=== PATIENT | female | born 1960 | race Caucasian/White ===

== ENCOUNTER 2017-03-16 16:27 | Emergency (ER) | payer MEDICARE ==
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
[2017-03-16 16:53] VITALS: BP 151/84; PULSE 98; BMI 42.9
[2017-03-16 17:17] VITALS: TEMP 98
== END 2017-03-16 18:12 | disposition home or self-care (01) ==
LOC: JER 16:27
DX: J70.5 Respiratory conditions due to smoke inhalation (principal); F17.290 Nicotine dependence, other tobacco product, uncomplicated; X02.1XXA Exposure to smoke in controlled fire in building or structure, initial encounter; Y93.89 Activity, other specified; Y92.038 Other place in apartment as the place of occurrence of the external cause
CPT/HCPCS: 99282-25